=== PATIENT | female | born 2000 | race African-American/Black ===

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

== ENCOUNTER → 2020-10-27 | Outpatient (CLI) | payer SELFPAY | LOC: M LABSMTC 10:39 | PROVIDERS: ATTEND Pediatrics | DX: Z20.828 Contact with and (suspected) exposure to other viral communicable diseases (principal) ==

== ENCOUNTER → 2020-11-24 | Outpatient (CLI) | payer SELFPAY | LOC: M LABSMTC 12:15 | PROVIDERS: ATTEND Pediatrics | DX: Z20.828 Contact with and (suspected) exposure to other viral communicable diseases (principal) ==